=== PATIENT | male | born 1990 | race American Indian/Alaskan Native ===

== ENCOUNTER 2017-02-12 13:43 | Emergency (ER) | payer MEDICAID ==
[2017-02-12 13:49] VITALS: BP 125/88
[2017-02-12] MEDS ORDERED: XYLOCAINE 1% MPF 5 mL INFILTRATI ONE (13:50)
[2017-02-12] MEDS ORDERED: ROCEPHIN IM ONE (13:50)
[2017-02-12] MEDS ORDERED: ZITHROMAX PO ONE (13:50)
--- NOTE | 2017-02-12 14:07 | Emergency Department Report ---
ED Male HPI - General Chief complaint: Urogenital-Male Stated complaint: POSS STD Time Seen by Provider: 02/12/17 13:49 Source: patient Mode of arrival: Ambulatory Limitations: No Limitations - History of Present Illness Initial comments: PT c/o dysuria and penile discharge that he noticed today PT does report new sexual partners and unprotected sex. MD Complaint: penile discharge, dysuria -: Gradual, hour(s) Location: penis Radiation: none Quality: burning (when urinating ) Consistency: intermittent Improves with: none Worsens with: urination discharge, dysuria. denies: swelling, mass, rash, urinary retention, fever, nausea/vomiting - Related Data Sexually active: Yes Allergies Allergy/AdvReac Type Severity Reaction Status Date / Time No Known Allergies Allergy Unverified 01/24/16 04:27 ED Review of Systems ROS: Stated complaint: POSS STD Other details as noted in HPI Comment: All other systems reviewed and negative ENT: denies: throat pain Gastrointestinal: denies: abdominal pain, nausea, vomiting Genitourinary: dysuria, discharge. denies: testicular pain, testicular mass Skin: denies: rash ED Past Medical Hx - Past Medical History Previous Medical History?: No - Surgical History Past Surgical History?: No - Social History Smoking Status: Current Every Day Smoker Substance Use Type: Alcohol ED Physical Exam - General Limitations: No Limitations General appearance: alert, in no apparent distress - Head Head exam: Present: atraumatic, normocephalic, normal inspection - Eye Eye exam: Present: normal appearance, PERRL, EOMI. Absent: conjunctival injection - ENT ENT exam: Present: normal exam, mucous membranes moist, normal external ear exam - Neck Neck exam: Present: normal inspection, full ROM. Absent: tenderness, lymphadenopathy - Respiratory Respiratory exam: Present: normal lung sounds bilaterally. Absent: respiratory distress, chest wall tenderness - Cardiovascular Cardiovascular Exam: Present: regular rate, normal rhythm, normal heart sounds - GI/Abdominal GI/Abdominal exam: Present: soft. Absent: tenderness - Extremities Exam Extremities exam: Present: normal inspection, full ROM - Back Exam Back exam: Present: normal inspection, full ROM. Absent: tenderness, CVA tenderness (R), CVA tenderness (L) - Neurological Exam Neurological exam: Present: alert, oriented X3 - Psychiatric Psychiatric exam: Present: normal affect, normal mood - Skin Skin exam: Present: warm, dry, intact ED Course Vital Signs 02/12/17 13:47 Temperature 98.5 F Pulse Rate 81 Respiratory 18 Rate Blood Pressure 125/88 O2 Sat by Pulse 100 Oximetry - Reevaluation(s) Reevaluation #1: 02/12/17 14:29 PT treated empirically for gc/ct. PT aware sexual partners will need testing/ treatment. PT aware he is to refrain from sexual activity x 7 days. PT aware he will need to follow up for full panel std testing - Pulse Oximetry Interpretation Digit-Finger Initial Pulse Oximetry Readin Actions Taken: none ED Medical Decision Making - Differential Diagnosis uti, std Critical Care Time: No Critical care attestation.: If time is entered above; I have spent that time in minutes in the direct care of this critically ill patient, excluding procedure time. ED Disposition Clinical Impression: Penile discharge Disposition: DC-01 TO HOME OR SELFCARE Is pt being admited?: No Does the pt Need Aspirin: No Condition: Stable Instructions: Sexually Transmitted Diseases (ED), Safe Sex (ED) Additional Instructions: Do not have sex for the next 7 days Follow up with PCP/ health dept for full panel STD testing Sexual partners will need std testing/ treatment Referrals: [facility] Depart [Outside] - 3-5 Days SAEED BOSS MD [Staff Physician] - 3-5 Days Time of Disposition: 14:33
== END 2017-02-12 14:50 | disposition home or self-care (01) ==
LOC: ED 13:43
DX: R36.9 Urethral discharge, unspecified (principal); R30.0 Dysuria; F17.210 Nicotine dependence, cigarettes, uncomplicated
CPT/HCPCS: 96372; 99282; J0696